=== PATIENT | male | born 1995 | race Two or more races ===

== ENCOUNTER 2018-06-22 15:46 | Emergency (ER) | payer OTHER ==
[~2018-06-22] VITALS: Ht 170.2 cm; Wt 75.7 kg
== END 2018-06-22 18:15 | disposition home or self-care (01) ==
LOC: ER 15:46
DX: S00.83XA Contusion of other part of head, initial encounter (principal); S60.222A Contusion of left hand, initial encounter; S60.221A Contusion of right hand, initial encounter; S60.022A Contusion of left index finger without damage to nail, initial encounter; R42 Dizziness and giddiness; V49.9XXA Car occupant (driver) (passenger) injured in unspecified traffic accident, initial encounter; Y93.89 Activity, other specified; Y92.488 Other paved roadways as the place of occurrence of the external cause; Y99.8 Other external cause status

== ENCOUNTER 2018-10-05 19:42 | Emergency (ER) | payer OTHER ==
[~2018-10-05] VITALS: Ht 170.2 cm; Wt 74.8 kg
[2018-10-05] MEDS ORDERED: CLEOCIN HCL300 MG (20:11)
[2018-10-05] MEDS ORDERED: DOLOGESIC 500-1 EACH (20:11)
== END 2018-10-05 22:50 | disposition home or self-care (01) ==
LOC: ER 19:42
DX: G89.11 Acute pain due to trauma (principal); M79.641 Pain in right hand; S60.221S Contusion of right hand, sequela; W18.39XS Other fall on same level, sequela

== ENCOUNTER → 2019-05-03 | Emergency (ER) | payer OTHER ==
[~2019-05-03] VITALS: Ht 170.2 cm; Wt 74.8 kg
[~2019-05-03] MED LIST: CLEOCIN HCL300 MG; DOLOGESIC 500-1 EACH
== END | disposition home or self-care (01) ==
LOC: ER 18:09
DX: M25.572 Pain in left ankle and joints of left foot (principal)